=== PATIENT | male | born 1960 | race Caucasian/White ===

== ENCOUNTER 2017-06-17 11:43 | Emergency (ER) | payer OTHER ==
[~2017-06-17] VITALS: Ht 175.3 cm; Wt 83.1 kg
[2017-06-17 11:59] VITALS: TEMP 36.7; Ht 175.3 cm; Wt 83.1 kg
[2017-06-17] MEDS ORDERED: OXYC1TAB3 PO (12:48)
--- NOTE | 2017-06-17 12:50 | EMERGENCY ROOM VISIT NOTE ---
ED Visit Note First contact with patient: 12:07 CHIEF COMPLAINT: Low back pain radiating into the right leg 4 months, worse in the last 2 weeks HISTORY OF PRESENT ILLNESS: Patient is a 56-year-old white male who presents emergency Department accompanied by his girlfriend for evaluation of progressively worsening low back pain radiating into the right leg. He has a remote history of a lumbar spine surgery performed roughly 15 years ago. He has had increasing pain in the low back that radiates into the right buttocks and leg since February, but in the last several weeks his symptoms have worsened. He describes a constant, aching pain across his entire low back that radiates down into his left buttocks, down his left leg and toe. He denies any numbness, tickling, weakness or paresthesias. He has been seen by his primary care provider. He has been placed on Flexeril, did a course of prednisone, and was recently started on Requip. He is also tried Tylenol and several different NSAIDs. 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 He also is started physical therapy this week and had one session. He notes that he is unbearable at night when he is trying to sleep between 10: 00 in the morning. He is completely unable to get comfortable no matter what position he tries. He has tried sleeping in a recliner. At the present time he is fairly comfortable, rating his discomfort a 3/10, but he knows that at nighttime, the pain will worsen. After being seen by the physical therapist this week, the directed him back to his primary care provider for an MRI, which they are in the process of off obtaining. He denies any bowel or bladder incontinence or saddle anesthesias. No abdominal pain, urinary symptoms or flank pain. REVIEW OF SYSTEMS: Review of systems as per HPI. All other systems reviewed were negative. 10 systems reviewed. PMH: Electronic medical records are reviewed and summarized as above/below. See Problem List. SOCIAL HISTORY: Patient lives at home by himself. He lives in [place], but spends several weeks at a time with his girlfriend here locally here in [place]. He does not smoke. PHYSICAL EXAM: Vital Signs: Reviewed Nurse's notes. CONSTITUTIONAL: Patient is a well-appearing 56-year-old white male who is awake and alert and in no acute distress. He is sitting comfortably on the edge of the gurney, in no significant discomfort is noted with range of motion or position changes. CARDIOVASCULAR: Regular rate and rhythm, with normal S1 and S2, no murmur or gallop or rub is heard. No carotid bruits auscultated. No JVD. Peripheral pulses easily palpable. RESPIRATORY: Breath sounds equal and clear to auscultation without wheezes, rales, or rhonchi heard. Full and equal chest expansion without accessory muscle use or retractions. ABDOMEN: Bowel sounds are present. Abdomen is soft, nontender and nondistended. INTEGUMENTARY: No lesions or rash, normal skin turgor. LYMPH: No lymphadenopathy. SPINE: Examination of the patient's back does not demonstrate any ecchymosis, abrasions or outward signs of trauma. No erythema, increased warmth or induration. He has a well-healed midline surgical incision. He has slight increased discomfort with flexion and rotation. He has slight discomfort over the right SI joint and in the sciatic notch, left side is nontender. EXTREMITIES: Leg lengths are symmetrical. Negative logroll bilaterally. Normal strength including dorsi-flexion and plantar flexion of the great toes and ankles and flexion and extension of the knees and flexion of the hips. Positive right-sided straight leg raise, negative left-sided straight leg raise. Lower extremity DTRs are equal and symmetrical bilaterally. Distal pulses are easily palpable. Sensation light touch is intact over the lower extremities bilaterally. EMERGENCY DEPARTMENT COURSE: The patient was seen and evaluated as above. He has no old records at this facility for review. Patient was reviewed in the [facility] Prescription Drug Monitoring Program, and there were no red flags noted. A great deal of time was spent discussing the patient's treatment options. He is under the care of a physical therapist and his primary care provider is in the process of arranging an MRI. He does not have any new trauma or direct injury to the back to decrease radiographs and given that the patient is not likely to pursue care here locally, it was not felt that any radiographs would be of benefit performed here today. I agree that he likely needs an MRI given the chronicity of his symptoms and the lack of response to reasonable interventions. On physical exam he does not have any signs of acute cord compression or cauda equina syndrome. He was offered narcotics for pain, he denies that he has a true allergy to them, more so that they just make his head funny, and he is agreeable to try these at bedtime to help facilitate sleep. He just recently did a course of steroids, and this was ineffective therefore repeating was not felt to be helpful. He has Flexeril. He was encouraged to continue an NSAID. He was advised to follow-up with his primary care provider for MRI as he can get it scheduled. The patient was discharged home with his girlfriend in good condition. Medication reconciliation: I attest that I have personally reviewed the patient' s current medication list. Blood pressure screening: Patient was found to have a slightly elevated blood pressure due to circumstances. I do not believe that the patient requires hypertension monitoring. Problem List Medical Problems: (1) Dyslipidemia Status: Chronic (2) GERD (gastroesophageal reflux disease) Status: Chronic Surgical Problems: (1) H/O lumbosacral spine surgery Status: Resolved Current/Historical Medications Scheduled PRN Oxycodone Immediate Rel Tab (Roxicodone Ir), 1-2 TAB PO Q4H PRN for Severe Pain Vital Signs Date Time Temp Pulse Resp B/P (MAP) Pulse Ox O2 Delivery O2 Flow Rate FiO2 06/17/17 13:21 82 18 132/84 98 06/17/17 11:59 36.7 80 20 154/102 98 Room Air Departure Information Impression Primary Impression: Lumbar back pain with radiculopathy affecting right lower extremity Prescriptions Oxycodone Immediate Rel Tab (ROXICODONE IR) 5 Mg Tab 1-2 TAB PO Q4H Y for Severe Pain, #25 TAB For Initial Treatment Prov: Carol Kelley PA 06/17/17 Referrals Clarisa Handley D.O. (PCP) Ney Camarillo, DO Orthopedic spine surgery with [facility] Patient Instructions My [facility] Additional Instructions Oxycodone (OxyIR) 5mg: Take 1-2 pills every four hours for breakthrough pain. Avoid alcohol, operating machinery or dangerous equipment, working on ladders or roofs, DRIVING, or situations where being under the influence may be dangerous. It is recommended to use an [id number] stool softener such as Colace, 100mg twice daily while taking this medication to avoid constipation. Keep your physical therapy appointment as you have scheduled. Continue current medications. Return to the ER immediately for any numbness, tingling, severe pain, loss of control of your bowels or bladder, inability to walk, or as needed. Follow up with your primary care physician next week to arrange MRI.
[2017-06-17 13:21] VITALS: BP 132/84; PULSE 82; O2SAT 98
== END 2017-06-17 13:21 | disposition home or self-care (01) ==
LOC: C.EDB 11:45 → C.EDD 13:21
DX: M54.16 Radiculopathy, lumbar region (principal); E87.5 Hyperkalemia; K21.9 Gastro-esophageal reflux disease without esophagitis; Z98.890 Other specified postprocedural states

== ENCOUNTER 2017-06-20 07:10 | Emergency (ER) | payer OTHER ==
[~2017-06-20] VITALS: Ht 175.3 cm; Wt 83.2 kg
[~2017-06-20 07:10] MED LIST: OXYC1TAB3 PO
[2017-06-20 07:18] VITALS: Ht 175.3 cm; Wt 83.2 kg
--- NOTE | 2017-06-20 08:51 | DIAGNOSTIC IMAGING REPORT ---
R TIBIA/FIBULA 2 VIEWS ROUTINE CLINICAL HISTORY: lateral lower leg pain, proximal fibula/lateral malleolus pain COMPARISON: None. DISCUSSION: The bones and joint spaces appear intact. There is no evidence of fracture, dislocation or bony disease. There is no evidence for soft tissue swelling. IMPRESSION: Negative study. The above report was generated using voice recognition software. It may contain grammatical, syntax or spelling errors. Electronically signed by: Calin Saucedo M.D. 06/20/2017 8:49 AM Dictated Date/Time: 06/20/2017 8:49 AM
--- NOTE | 2017-06-20 08:57 | DIAGNOSTIC IMAGING REPORT ---
LUMBAR SPINE 5 VIEWS HISTORY: low back pain, right side COMPARISON: None. FINDINGS: There is no fracture. No subluxation. Disc spaces are preserved within the lumbar spine. Mild disc space narrowing within the lower thoracic spine. IMPRESSION: No fracture or subluxation within the lumbar spine. Electronically signed by: Michoacano Magana M.D. 06/20/2017 8:56 AM Dictated Date/Time: 06/20/2017 8:48 AM
--- NOTE | 2017-06-20 09:42 | EMERGENCY ROOM VISIT NOTE ---
ED Visit Note First contact with patient: 07:25 CHIEF COMPLAINT: "I think it's my back" HISTORY OF PRESENT ILLNESS: This 56-year-old male patient presents to the emergency department, ambulatory, with his girlfriend, complaining of pain in the low back which began in February. The pain was gradual in onset, is now constant and worse with movement. The patient states the pain is all in the right side of his low back, overlying the piriformis muscle when his girlfriend was massaging. This massage and pressure caused the pain to radiate down the right leg and into the big toe on the right side. The pain is normally only at night, from approximately 10pm until early in the morning. He has difficulty getting comfortable in bed, and feels better while up and walking around. The pain does come and go, and he is uncertain of aggravating or alleviating factors. 3 weeks ago, the patient was exercising and stretching, which seemed to help, but the pain returned. The patient describes the pain as "numbness" and rates it 4/10 presently. He has seen his PCP who recommended PT. He had one PT session and the Physical Therapist felt that the patient needed to have an MRI, so contacted the PCP, who is in the process of attempting to schedule the MRI. The patient's girlfriend states "We're here to have the MRI completed, because the pain is keeping him awake at night, which keeps me up at night, and we both are grumpy during the day. The patient was seen here 3 days ago for the same symptoms and was given OxyIR. He states this usually helps, but he is not consistently taking medication for pain. He states he was on Prednisone and Flexeril approximately 2 weeks ago which did not help. There has been no new injury and no new symptoms. The patient denies leg weakness or change in sensation. There has been no nausea, vomiting, or abdominal pain. He has not lost control of his bowel or bladder functions. In addition to the back pain, the patient also c/o separate, different pain in his right lower leg. The patient notes the pain as "like someone hit me with a sledgehammer in my ankle", and a 8/10. He states this discomfort is worse on palpation and with weightbearing. He did not injure it, however is concerned for possible fracture. He does have full range of motion of the entire lower extremity. The patient does report history of metastatic prostate cancer to the bone in his family, and is concerned that he could have metastasis. The patient denies any recent travel. With the exception of being slightly less active than normal due to the back pain, the patient denies any recent inactivity or hospitalization. REVIEW OF SYSTEMS: A 10 system review of systems was performed with positives and pertinent negatives listed in the history of present illness. All other systems were reviewed and are negative. ALLERGIES: Rubbing alcohol MEDICATIONS: Prilosec, simvastatin PMH: GERD, hyperlipidemia SOCIAL HISTORY: Patient lives locally with family. He denies drug, alcohol, tobacco use. PHYSICAL EXAM: VITALS: Vitals are noted on the nurse's note and reviewed by myself. Vital signs stable. GENERAL: This is a 56-year-old white male, in no acute distress, nondiaphoretic , well-developed well-nourished. SKIN: The skin was without rashes, erythema, edema, or bruising. Capillary refill less than 2 seconds. NECK: Supple without nuchal rigidity. No cervical spine tenderness. No paraspinous muscle tenderness. HEART: Regular rate and rhythm without murmurs gallops or rubs. LUNGS: Clear to auscultation bilaterally without wheezes, rales or rhonchi. ABDOMEN: Positive bowel sounds x 4. Normal tympanic percussion. Soft, nontender, without masses or organomegaly. Marquez sign negative. MUSCULOSKELETAL: No muscle atrophy, erythema, or edema noted of the back. There is no tenderness over the lumbar spinous processes. There is no tenderness over the paraspinous muscles bilaterally. There is no tenderness over the thoracic spine or paraspinous muscles. There are no muscle spasms present. The patient has no tenderness with movement or position changes. He states tenderness with this is only at night. Negative straight leg raise test. NEURO: Patient was alert and oriented to person place and time. Normal sensation to light and sharp touch. Deep tendon reflexes 2+ in the lower extremities. Dorsalis pedis pulse 2+ bilaterally. Strength 5/5 and equal in the bilateral lower extremities. RADIOLOGY: LUMBAR SPINE 5 VIEWS HISTORY: low back pain, right side COMPARISON: None. FINDINGS: There is no fracture. No subluxation. Disc spaces are preserved within the lumbar spine. Mild disc space narrowing within the lower thoracic spine. IMPRESSION: No fracture or subluxation within the lumbar spine. Electronically signed by: Michoacano Magana M.D. 06/20/2017 8:56 AM Dictated Date/Time: 06/20/2017 8:48 AM R TIBIA/FIBULA 2 VIEWS ROUTINE CLINICAL HISTORY: lateral lower leg pain, proximal fibula/lateral malleolus pain COMPARISON: None. DISCUSSION: The bones and joint spaces appear intact. There is no evidence of fracture, dislocation or bony disease. There is no evidence for soft tissue swelling. IMPRESSION: Negative study. The above report was generated using voice recognition software. It may contain grammatical, syntax or spelling errors. Electronically signed by: Calin Saucedo M.D. 06/20/2017 8:49 AM Dictated Date/Time: 06/20/2017 8:49 AM RIGHT LOWER EXTREMITY VENOUS DOPPLER CLINICAL HISTORY: Right lower leg pain. COMPARISON STUDY: No previous studies for comparison. TECHNIQUE: Sonography of the deep venous system of the right lower extremity was performed. Compression and augmentation were evaluated. FINDINGS: The right common femoral, superficial femoral and popliteal veins were compressible. Augmentation was normal. Flow was shown within the deep calf vessels. IMPRESSION: No evidence of deep venous thrombus within the right lower extremity. Electronically signed by: Valentin Camacho M.D. 06/20/2017 9:45 AM Dictated Date/Time: 06/20/2017 9:44 AM EMERGENCY DEPARTMENT COURSE: The patient was seen and evaluated as above. Imaging an ultrasound was ordered and performed with results as above. No acute findings noted. I had a very extensive discussion with the patient and his girlfriend at bedside regarding emergent MRI from the ER. The patient is not experiencing symptoms which are concerning for acute abscess, cauda equina syndrome, or cord compression. I do not feel that an emergent MRI here will change the plan of care at this time. The patient was encouraged to continue to perform physical therapy and work with his primary care provider. The patient states after his last visit to the emergency department, he was given information to contact Dr. Camarillo for evaluation of his back pain. The patient' s girlfriend states she plans on contacting his office today. The patient declines pain medication while in the emergency department, as he is not currently experiencing pain. I did discuss discharge instructions with the patient, and he will change the medications around. He will be prescribed a very short course of narcotic pain medication for breakthrough pain. The patient is in agreement with the assessment and plan. He was discharged home in good condition. I attest that I have personally reviewed the patient's current medication list. Blood Pressure Screening: Patient was found to have a slightly elevated blood pressure due to circumstances. I do not believe that the patient requires hypertension monitoring. I did consult with PDMP and did not note any suspicious findings. Etiologies such as lumbago, sciatica, cauda equina, epidural abscess, osteomyelitis, fracture, aortic disease, metastatic disease, infection, renal colic, gastrointestinal, as well as others were entertained. DIAGNOSIS: Lumbar strain, lumbar radiculopathy, lower right leg pain Problem List Medical Problems: (1) Dyslipidemia Status: Chronic (2) GERD (gastroesophageal reflux disease) Status: Chronic Surgical Problems: (1) H/O lumbosacral spine surgery Status: Resolved Current/Historical Medications Scheduled Baclofen (Lioresal), 10 MG PO TID Scheduled PRN Ibuprofen Tab (Motrin), 600 MG PO Q6H PRN for Pain Oxycodone Immediate Rel Tab (Roxicodone Ir), 1-2 TAB PO Q4H PRN for Severe Pain Oxycodone Ir (Roxicodone Ir), 1-2 TAB PO Q4H PRN for Pain Vital Signs Date Time Temp Pulse Resp B/P (MAP) Pulse Ox O2 Delivery O2 Flow Rate FiO2 06/20/17 10:16 36.6 82 18 150/97 98 06/20/17 07:41 76 06/20/17 07:31 36.6 78 18 152/99 98 Room Air 06/20/17 07:18 36.6 84 18 147/93 98 Room Air Departure Information Impression Primary Impression: Strain of lumbar region Additional Impressions: Lumbar radiculopathy Pain in right lower leg Dispostion Home / Self-Care Condition GOOD Prescriptions Ibuprofen Tab (MOTRIN) 600 Mg Tab 600 MG PO Q6H Y for Pain, #100 TAB Prov: Sintia Devries PA-C 06/20/17 Oxycodone Ir (Roxicodone Ir) 5 Mg Tab 1-2 TAB PO Q4H Y for Pain, #15 TAB For Initial Treatment Prov: Sintia Devries PA-C 1/9/18 Baclofen (Lioresal) 10 Mg Tab 10 MG PO TID, #15 TAB Prov: Sintia Devries PA-C 06/20/17 Referrals Clarisa Handley D.O. (PCP) Patient Instructions ED Neck Back Pain General, [facility] Additional Instructions You have been treated in the Emergency Department for Back Pain. You have been prescribed OxyIR to be used for pain control. This is a narcotic medication. You cannot drive or consume alcohol while on this medicine. This medicine should only be used for pain that cannot be controlled with over-the- counter pain medicines. You have been prescribed Baclofen 1 tab orally, up to three times per day. Do NOT exceed 30 mg (3 tabs) per day. Take your first dose at bedtime as it can make you drowsy. Always take all medications as prescribed. For pain control, you can use the following [id number]-fzatlcj medicines (if >12 yo): Ibuprofen(Motrin, Advil) may be used for fever or pain. Use 600mg every six hours as needed. Take with food. Avoid using more than 2400mg in a 24 hour period. Do not use 2400mg per day for more than three consecutive days without physician direction. Prolonged inappropriate use can lead to stomach upset or ulcers. Do not take any other NSAIDs including ibuprofen, Motrin, Advil, Aleve, naproxen while taking this medication. (AND/OR) Acetaminophen(Tylenol) may be used for fever or pain. Use 1000mg every six hours as needed. Avoid using more than 3000mg in a 24 hour period. *You may alternate these medications every 3-4 hours for increased pain relief. If this is an acute injury, ice can be applied to the area of pain for the first 3 days to help decrease pain and inflammation. After the first 3 days, a heating pad can be used over the area for continued soothing relief. Continue to follow-up with your PCP/Dr. Camarillo regarding your chronic back pain. Continue Physical Therapy unless directed otherwise. You should schedule a follow-up appointment in 2-3 days with your Primary Care Provider for further evaluation and treatment of your back pain. Return to the Emergency Department if your current symptoms worsen despite treatment course outlined above, or if you develop any of the following symptoms : intractable pain despite aforementioned treatment course, loss of control of your bowel or bladder, numbness or tingling in your groin, or development of a fever. Problem Qualifiers Primary Impression: Strain of lumbar region Encounter type: initial encounter Qualified Codes: S39.012A - Strain of muscle, fascia and tendon of lower back, initial encounter
--- NOTE | 2017-06-20 09:46 | DIAGNOSTIC IMAGING REPORT ---
RIGHT LOWER EXTREMITY VENOUS DOPPLER CLINICAL HISTORY: Right lower leg pain. COMPARISON STUDY: No previous studies for comparison. TECHNIQUE: Sonography of the deep venous system of the right lower extremity was performed. Compression and augmentation were evaluated. FINDINGS: The right common femoral, superficial femoral and popliteal veins were compressible. Augmentation was normal. Flow was shown within the deep calf vessels. IMPRESSION: No evidence of deep venous thrombus within the right lower extremity. Electronically signed by: Valentin Camacho M.D. 06/20/2017 9:45 AM Dictated Date/Time: 06/20/2017 9:44 AM
[2017-06-20] MEDS ORDERED: OXYC1TAB3 PO (10:04)
[2017-06-20] MEDS ORDERED: BACL10TA PO (10:04)
[2017-06-20] MEDS ORDERED: IBUP-1427 PO (10:04)
[2017-06-20 10:16] VITALS: BP 150/97; PULSE 82; TEMP 36.6; O2SAT 98
== END 2017-06-20 10:17 | disposition home or self-care (01) ==
LOC: C.EDB 07:12
DX: S39.012A Strain of muscle, fascia and tendon of lower back, initial encounter (principal); X58.XXXA Exposure to other specified factors, initial encounter; M54.16 Radiculopathy, lumbar region; M79.661 Pain in right lower leg; E78.5 Hyperlipidemia, unspecified; K21.9 Gastro-esophageal reflux disease without esophagitis; Z98.890 Other specified postprocedural states; Z79.899 Other long term (current) drug therapy; Z91.09 Other allergy status, other than to drugs and biological substances